=== PATIENT | female | born 1995 | race Caucasian/White ===

== ENCOUNTER 2017-05-21 16:18 | Outpatient (CLI) | payer BC, OTHER ==
--- NOTE | 2017-05-21 17:57 | RADIOLOGY REPORT (SQ) ---
EXAM DESCRIPTION: U/S PROFILE W/O STRESS COMPLETED DATE/TIME: 05/21/2017 5:29 pm REASON FOR STUDY: nonreactive nst COMPARISON: None. TECHNIQUE: Limited batista-scale realtime and static images of the fetus to measure specified parameter s. LIMITATIONS: None. FINDINGS: HEART RATE: 157 to 162 beats per minute. CAROLYN: 14.2 cm. POSTURE AND TONE: 2 points. MOVEMENT: 2 points. BREATHING MOVEMENT: 2 points. QUALITATIVE CAROLYN: 2 points. OTHER: No other significant finding. IMPRESSION: BIOPHYSICAL PROFILE: 05/25. Trimester of : Third - 28 weeks to delivery COMMENT: BREATHING MOVEMENTS: 2 POINTS: PRESENT 0 POINTS: ABSENT MOTION: 2 POINTS: PRESENT 0 POINTS: ABSENT TONE: 2 POINTS: PRESENT 0 POINTS: ABSENT AMNIOTIC FLUID VOLUME: 2 POINTS: LARGEST POCKET GREATER THAN 2 CM DEPTH. 0 POINTS: NO POCKET OF 2 CM. TECHNICAL DOCUMENTATION: JOB ID: [id number] [employer]- All Rights Reserved
--- NOTE | 2017-05-21 18:10 | Non Stress Test Report ---
Non Stress Test Datetime Report Generated by CPN: 05/21/2017 18:10 INDICATION Indication for Study: Ordered by Provider VITAL SIGNS Temperature - NST: 98.9 Pulse - NST: 92 RESP - NST: 16 NBPSYS NST: 132 NBPDIA NST: 74 MONITORING Monitor Explained: Monitor Explained; Test Explained; Patient Verbalized Understanding Time on Monitor: 05/21/2017 16:36 Time off Monitor: 05/21/2017 16:58 NST Duration: 22 NST INTERVENTIONS NST Interventions: None; For Biophysical Profile Physician Notified NST: Dr. Ruiz BABY A: [id number] BABY A Movement : Present Contraction Frequency : 0 FHR Baseline : 160 Accelerations : 15X15 Decelerations : None Variability : Moderate 6-25bpm NST Review: Meets Criteria for Reactive NST NST Review and Verified By : Marsha Bellavashelbie RNC NST Results: Reactive NST COMMENTS NST Comments: BPP 8/8 NST REPORT Report Trigger: Send Report
== END 2017-05-21 18:08 | disposition home or self-care (01) ==
LOC: LC 16:18
PROVIDERS: ATTEND Student in an Organized Health Care Education/Training Program
PROC: 4A1HXCZ Monitoring of Products of Conception, Cardiac Rate, External Approach (ICD-10-PCS; principal; 2017-05-21)
DX: Z36 Encounter for antenatal screening of mother (principal)
CPT/HCPCS: 59025; 76819

== ENCOUNTER 2017-05-28 11:24 | Outpatient (CLI) | payer BC, OTHER ==
--- NOTE | 2017-05-28 13:42 | Non Stress Test Report ---
Non Stress Test Datetime Report Generated by CPN: 05/28/2017 13:42 DEMOGRAPHIC EGA NST: 35.6 INDICATION Indication for Study: Ordered by Provider MONITORING Monitor Explained: Monitor Explained; Test Explained; Patient Verbalized Understanding Time on Monitor: 05/28/2017 11:36 Time off Monitor: 05/28/2017 13:32 NST Duration: 116 NST INTERVENTIONS NST Interventions: PO Hydration; Reposition Patient Physician Notified NST: Dr Hogue BABY A Movement : Present Contraction Frequency : none FHR Baseline : 140 Accelerations : 15X15 Decelerations : None Variability : Moderate 6-25bpm NST Review: Meets Criteria for Reactive NST NST Review and Verified By : Ronaldo Brown RN NST Results: Reactive NST REPORT Report Trigger: Send Report
== END 2017-05-28 13:40 | disposition home health service (06) ==
LOC: LC 11:24
PROVIDERS: ATTEND Obstetrics & Gynecology
PROC: 4A1HXCZ Monitoring of Products of Conception, Cardiac Rate, External Approach (ICD-10-PCS; principal; 2017-05-28)
DX: Z34.93 Encounter for supervision of normal pregnancy, unspecified, third trimester (principal); Z36 Encounter for antenatal screening of mother; Z3A.35 35 weeks gestation of pregnancy
CPT/HCPCS: 59025; 82962

== ENCOUNTER 2017-06-04 11:12 | Outpatient (CLI) | payer BC, OTHER | END 2017-06-04 11:50 | disposition home or self-care (01) | LOC: LC 11:12 | PROVIDERS: ATTEND Student in an Organized Health Care Education/Training Program | PROC: 4A1HXCZ Monitoring of Products of Conception, Cardiac Rate, External Approach (ICD-10-PCS; principal; 2017-06-04) | DX: O24.913 Unspecified diabetes mellitus in pregnancy, third trimester (principal); Z3A.37 37 weeks gestation of pregnancy | CPT/HCPCS: 59025 ==

== ENCOUNTER 2017-06-15 10:34 | Outpatient (CLI) | payer BC, OTHER ==
--- NOTE | 2017-06-15 12:18 | Non Stress Test Report ---
Non Stress Test Datetime Report Generated by CPN: 06/15/2017 12:18 DEMOGRAPHIC EGA NST: 38.3 EGA NST: 36.6 INDICATION Indication for Study: Ordered by Provider Indication for Study: Diabetes Mellitus; Ordered by Provider VITAL SIGNS Temperature - NST: 98.5 Pulse - NST: 85 RESP - NST: 20 NBPSYS NST: 120 NBPDIA NST: 80 MONITORING Monitor Explained: Monitor Explained; Test Explained; Patient Verbalized Understanding Monitor Explained: Monitor Explained; Test Explained; Patient Verbalized Understanding Time on Monitor: 06/15/2017 11:40 Time on Monitor: 06/04/2017 11:24 Time off Monitor: 06/15/2017 12:00 Time off Monitor: 06/04/2017 11:46 NST Duration: 20 NST Duration: 22 NST INTERVENTIONS NST Interventions: PO Hydration; Reposition Patient NST Interventions: PO Hydration Physician Notified NST: C Franco CNM Physician Notified NST: H Stephen CNM BABY A: [id number] BABY A Movement : Present Movement : Present Contraction Frequency : 7-10 Contraction Frequency : 0 FHR Baseline : 145 FHR Baseline : 145 Accelerations : 15X15 Accelerations : 15X15 Decelerations : None Decelerations : None Variability : Moderate 6-25bpm Variability : Moderate 6-25bpm NST Review: Meets Criteria for Reactive NST NST Review: Meets Criteria for Reactive NST NST Review and Verified By : Catalina Krishnamurthy NST Review and Verified By : Ahmet Camacho [facility] NST Results: Reactive NST Results: Reactive NST REPORT Report Trigger: Send Report
== END 2017-06-15 12:12 | disposition home or self-care (01) ==
LOC: LC 10:34
PROVIDERS: ATTEND Obstetrics & Gynecology
PROC: 4A1HXCZ Monitoring of Products of Conception, Cardiac Rate, External Approach (ICD-10-PCS; principal; 2017-06-15)
DX: O24.419 Gestational diabetes mellitus in pregnancy, unspecified control (principal); Z3A.38 38 weeks gestation of pregnancy
CPT/HCPCS: 59025

== ENCOUNTER 2017-06-25 11:44 | Outpatient (CLI) | payer BC, OTHER ==
--- NOTE | 2017-06-25 13:50 | Non Stress Test Report ---
Non Stress Test Datetime Report Generated by CPN: 06/25/2017 13:50 DEMOGRAPHIC EGA NST: 39.6 INDICATION Indication for Study: Ordered by Provider MONITORING Monitor Explained: Monitor Explained; Test Explained; Patient Verbalized Understanding Time on Monitor: 06/25/2017 12:50 Time off Monitor: 06/25/2017 13:23 NST Duration: 33 NST INTERVENTIONS NST Interventions: PO Hydration Physician Notified NST: Dr. Merino BABY A: [id number] BABY A Movement : Present Contraction Frequency : x0 FHR Baseline : 140 Accelerations : 15X15 Decelerations : None Variability : Moderate 6-25bpm NST Review: Meets Criteria for Reactive NST NST Review and Verified By : Ahmet Camacho RNC NST Results: Reactive NST REPORT Report Trigger: Send Report
== END 2017-06-25 13:30 | disposition home or self-care (01) ==
LOC: LC 11:44
PROVIDERS: ATTEND Obstetrics & Gynecology
PROC: 4A1HXCZ Monitoring of Products of Conception, Cardiac Rate, External Approach (ICD-10-PCS; principal; 2017-06-25)
DX: O24.419 Gestational diabetes mellitus in pregnancy, unspecified control (principal); Z3A.39 39 weeks gestation of pregnancy
CPT/HCPCS: 59025

== ENCOUNTER 2017-06-25 21:10 | Inpatient (IN) | payer BC, OTHER ==
[~2017-06-25 21:10] MED LIST: RINGERS SOLUTION,LACTATED 1,000 ML IV PRN
[2017-06-25 22:46] LABS: APPEARANCE,URINE SLIGHTLY-CLOUDY; BILIRUBIN,URINE NEGATIVE (NEGATIVE); GLUCOSE, URINE NEGATIVE (NEGATIVE); KETONES,URINE NEGATIVE (NEGATIVE); LEUKOCYTE ESTERASE,URINE SMALL (NEGATIVE); NITRITE,URINE NEGATIVE (NEGATIVE); PROTEIN,URINE 100 mg/dL (NEGATIVE); URINE SPECIFIC GRAVITY 1.028; UROBILINOGEN,URINE NEGATIVE mg/dL (<2.0)
[2017-06-25 22:53] LABS: ABSOLUTE BASOPHILS # (AUTO) 0.1 10^3/uL (0.0-0.2); ABSOLUTE EOSINOPHILS # (AUTO) 0.1 10^3/uL (0.0-0.6); ABSOLUTE LYMPHOCYTES (AUTO) 1.9 10^3/uL (0.5-4.7); ABSOLUTE MONOCYTES (AUTO) 1.1 10^3/uL (0.1-1.4); ABSOLUTE NEUT (AUTO) 10.2 10^3/uL (1.7-8.2); BASOPHILS % (AUTO) 0.6 % (0-2); EOSINOPHILS % (AUTO) 0.5 % (0-6); HEMATOCRIT 36.3 % (36.0-47.0); HEMOGLOBIN 12.5 g/dL (12.0-15.5); HGB HCT DIFFERENCE 1.2; LYMPHOCYTES % (AUTO) 14.6 % (13-45); MEAN CORPUSCULAR HEMOGLOBIN 30.3 pg (27.0-33.4); MEAN CORPUSCULAR HGB CONC 34.5 g/dL (32.0-36.0); MEAN CORPUSCULAR VOLUME 88 fl (80-97); RED BLOOD COUNT 4.14 10^6/uL (3.72-5.28); RED CELL DISTRIBUTION WIDTH 14.3 % (11.5-14.0); SEGMENTED NEUTROPHILS % (AUTO) 76.3 % (42-78); WHITE BLOOD COUNT 13.3 10^3/uL (4.0-10.5)
[2017-06-25 23:03] LABS: URINE BARBITURATES SCREEN NEGATIVE; URINE METHADONE SCREEN NEGATIVE; URINE OPIATES LOW NEGATIVE; URINE PHENCYCLIDINE SCREEN NEGATIVE
[2017-06-25] MEDS ORDERED: FENTANYL/BUPIVACAINE/NS/PF 0 MCG/0 ML RTUINJ EPI ONE (23:09)
[2017-06-25] MEDS ORDERED: EPHEDRINE SULFATE INJ 50 MG/1 ML AMPULE ONE (23:09)
[2017-06-25] MEDS ORDERED: FENTANYL CITRATE INJ/PF 100 MCG/2 ML AMPUL ONE (23:09)
[2017-06-25] MEDS ORDERED: BUPIVACAINE HCL 0.25 % INJ/PF (2.5 MG/1 ML) 30 ML VIAL ONE (23:09)
[2017-06-25] MEDS ORDERED: PHENYLEPHRINE HCL INJ/PF 10 MG/1 ML SDV ONE (23:09)
[2017-06-25] MEDS ORDERED: OXYTOCIN/NORMAL SALINE 20 UNIT/1,000 ML RTUINJ ONE (23:10)
[2017-06-25] MEDS ORDERED: MISOPROSTOL 0.2 MG TABLET ONE (23:10)
[2017-06-25] MEDS ORDERED: LIDOCAINE 1% INJ-PF (10 MG/ML) 30 ML SDV ONE (23:10)
[2017-06-26] MEDS ORDERED: ACETAMINOPHEN WITH CODEINE #3 TABLET ONE (00:01)
[2017-06-26] MEDS ORDERED: IBUPROFEN 800 MG TABLET ONE (00:01)
[2017-06-26] MEDS ORDERED: MEASLES,MUMPS&RUBELLA VACC/PF 0.5 ML VIAL SUBCUT PRN (00:03)
[2017-06-26] MEDS ORDERED: DIPH/PERTUSS(ACELL)/TETANUS VAC/PF 0.5 ML SYR (>=10YO) IM PRN (00:03)
[2017-06-26] MEDS ORDERED: PROMETHAZINE HCL 25 MG SUPP.RECT PR PRN (00:03)
[2017-06-26] MEDS ORDERED: PROMETHAZINE HCL INJ 25 MG/1 ML VIAL IV PRN (00:03)
[2017-06-26] MEDS ORDERED: PROMETHAZINE HCL 25 MG TABLET PO PRN (00:03)
[2017-06-26] MEDS ORDERED: DIPHENHYDRAMINE HCL 25 MG CAPSULE PO PRN (00:03)
[2017-06-26] MEDS ORDERED: PSEUDOEPHEDRINE HCL 30 MG TABLET PO PRN (00:03)
[2017-06-26] MEDS ORDERED: OXYTOCIN/NORMAL SALINE 20 UNIT/1,000 ML RTUINJ IV PRN (00:03)
[2017-06-26] MEDS ORDERED: GLYCERIN/WITCH HAZEL LEAF 1 EACH MED..PAD TP PRN (00:03)
[2017-06-26] MEDS ORDERED: NA PHOS,M-B/NA PHOS,DI-BA (ADULT) 133 ML ENEMA PR PRN (00:03)
[2017-06-26] MEDS ORDERED: DIBUCAINE 1% OINTMENT 28 GM TP PRN (00:03)
[2017-06-26] MEDS ORDERED: ACETAMINOPHEN 650 MG SUPP.RECT PR PRN (00:03)
[2017-06-26] MEDS ORDERED: BENZOCAINE/MENTHOL AEROSOL SPRAY 56 ML TOP PRN (00:03)
[2017-06-26] MEDS ORDERED: MAGNESIUM HYDROXIDE SUSP 30 ML UDCUP PO PRN (00:03)
[2017-06-26] MEDS ORDERED: ZOLPIDEM TARTRATE 5 MG TABLET PO PRN (00:03)
[2017-06-26] MEDS ORDERED: SERTRALINE HCL 50 MG TABLET ONE (01:57)
--- NOTE | 2017-06-26 02:20 | Delivery Summary ---
Del Sum A-C Datetime Report Generated by CPN: 06/26/2017 02:20 DELIVERY PERSONNEL DELIVERY PERSONNEL: [id number] Delivery Doctor:: Vee Merino MD Labor and Delivery Nurse:: Bridgette Reyes RNsheet fed printer Nurse:: Vicki Tom, RN Community Affairs Manager/SHIELD CLEANER: Ashlyn Semar, COLLATERAL CLERK MATERNAL INFORMATION Delivery Anesthesia: None Medications After Delivery: Pitocin Drip 20 Units/1000ml NSS Maternal Complications: Precipitous Labor (<3hrs) LABOR SUMMARY EDC: 06/26/2017 00:00 No. Babies in Womb: 1 Attempted: No Labor Anesthesia: None LABOR INFORMATION Reason for Induction: Not Applicable Onset of Labor: 06/25/2017 21:31 Complete Dilatation: 06/25/2017 23:30 Oxytocin: N/A Group B Beta Strep: negative Antibiotics # of Doses: 0 Steroids Given: None Reason Steroids Not Administered: Not Applicable MEMBRANES Membranes Rupture Method: Artificial Rupture of Membranes: 06/25/2017 23:30 Length of Rupture (hr): 0.20 Amniotic Fluid Color: Light Meconium Amniotic Fluid Amount: Small STAGES OF LABOR Stage 1 hr: 1 Stage 1 min: 59 Stage 2 hr: 0 Stage 2 min: 12 Stage 3 hr: 0 Stage 3 min: 5 Total Time in Labor hr: 2 Total Time in Labor min: 16 VAGINAL DELIVERY Episiotomy: None Laceration Extension: N/A Laceration Type: Vaginal Laceration Repair: Yes Laceration Repair Note: repair with interupted 3-0 chromic suture. the vagina is somewhat macerated. the mucosa was brought together as much as possible. Sponge Count Correct: Vaginal Sweep Performed Sharps Count Correct: Yes CSECTION DELIVERY Primary Indication: N/A Secondary Indication: N/A CSection Incidence: N/A CSection Incision: N/A BABY A INFORMATION Delivery Date/Time: 06/25/2017 23:42 Method of Delivery: Vaginal Born in Route : No : N/A Forceps: N/A Vacuum Extraction: N/A Shoulder Dystocia : No PRESENTATION/POSITION BABY A Presentation: Cephalic Cephalic Presentation: Vertex Vertex Position: Left Occipital Anterior Breech Presentation: N/A PLACENTA INFORMATION BABY A Placenta Delivery Time : 06/25/2017 23:47 Placenta Method of Delivery: Spontaneous Placenta Status: Delivered SCORES BABY A Heart Rate 1 min: >100 bpm Resp Effort 1 min: Slow, Irregular Reflex Irritability 1 min: Cough or Sneeze or Pulls Away Muscle Tone 1 min: Some Flexion of Extremities Color 1 min: Blue/Pale Resuscitation Effort 1 min: Tactile Stimulation; Oxygen SCORE 1 MIN: 6 Heart Rate 5 min: >100 bpm Resp Effort 5 min: Slow, Irregular Reflex Irritability 5 min: Cough or Sneeze or Pulls Away Muscle Tone 5 min: Some Flexion of Extremities Color 5 min: Completely [place] Resuscitation Effort 5 min: Tactile Stimulation SCORE 5 MIN: 8 INFANT INFORMATION BABY A Gestational Age at Delivery: 39.6 Gestational Status: Full Term- 39- 40.6 Weeks Outcome : Liveborn Condition : Stable Infant Sex: Female IDENTIFICATION BABY A Verification Date/Time: 06/26/2017 00:49 ID Band Number: [id number] Mother's Name Verified: Yes RN Verifying : rn ximena Additional Verifying Personnel: rn ring WEIGHT/LENGTH BABY A Infant Birthweight (gm): 2870 Weight (lb): 6 Weight (oz): 5 Length (in): 19.00 Length (cm): 48.26 CORD INFORMATION BABY A No. Cord Vessels: 3 Nuchal Cord : Around Neck x1, Loose Cord Blood Taken: Yes-For Eval (Mom's Blood Type - or O+) Suction: Mouth; Nose ASSESSMENT BABY A Infant Complications: None Physical Findings at Delivery: Within Normal Limits Infant Respirations: Appears Normal Skin to Skin: Yes Cook Short Order/ALS Called : No Transferred To: Remains with Mother SIGNATURES Signature: with User ID: [email or web address]
[2017-06-26] MEDS ORDERED: LIDOCAINE 1% INJ-PF (10 MG/ML) 30 ML SDV ONE (02:58)
--- NOTE | 2017-06-26 03:22 | Admission Physical ---
Datetime Report Generated by CPN: 06/26/2017 03:22 CURRENT ADMISSION Chief Complaint: Uterine Contractions Indication for Induction: Not Applicable Admit Plan: Admit to Unit; Initiate Labor Protocol ALLERGIES Medication Allergies: No Latex: No Latex Allergies Food Allergies: mild sensitivity to raw shellfish (hives) Environmental Allergies: pt states not allergic to topical iodine OBSTETRICAL HISTORY EDC: 06/26/2017 00:00 : 1 Para: 0 Term: 0 : 0 SAB: 0 IAB: 0 Ectopic: 0 Livin Cesareans: 0 VBACs: 0 Multiple Births: 0 Gestational Diabetes: Yes Rh Sensitization: No Incompetent Cervix: No OLIVIER: No Infertility: No ART Treatment: No Uterine Anomaly: No IUGR: No Hx Previous C/S: No Macrosomia: No Hx Loss/Stillborn: No PIH: No Hx : No Placenta Previa/Abruption: No Depression/PP Depression: Yes PTL/PROM: No Post Hemorrhage: No Current Procedures: Ultrasound; NST; BPP Obstetrical History Comments: Gestational diabetes in current SEE RECORDS Alcohol: No Marijuana : No Cocaine: No Other Illicit Drugs: No Cigarettes: Never Smoker. [id number] MEDICAL HISTORY Diabetes: Yes Diabetes Type: Gestational Diabetes Blood Transfusion: No Pulmonary Disease (Asthma, TB): No Breast Disease: No Hypertension: No Apparel Cutter Surgery: No Heart Disease: No Hosp/Surgery: No Autoimmune Disorder: No Anesthetic Complications: No Kidney Disease: No Abnormal Pap Smear: No Neuro/Epilepsy: No Psychiatric Disorders: No Other Medical Diseases: No Hepatitis/Liver Disease: No Significant Family History: No Varicosities/Phlebitis: No Trauma/Violence : No Thyroid Dysfunction: No Medical History Comments: Hx of depression - taking 150 mg zoloft, history of adhd was on adderal until 8 weeks of , obesity (Annotations: Data stored by [facility] on behalf of user) INFECTIOUS HISTORY Gonorrhea: No Genital Herpes: No Chlamydia: No Tuberculosis: No Syphilis: No Hepatitis: No HIV/AIDS Exposure: No Rash or Viral Illness: No HPV: No PHYSICAL EXAM General: Normal HEENT: Normal Neurologic: Normal Thyroid: Normal Heart: Normal Lungs: Normal Breast: Normal Back: Normal Abdomen: Normal Genitourinary Exam: Normal Extremities: Normal DTRs: Normal Pelvic Type: Adequate Vital Signs: Reviewed VAGINAL EXAM Dilatation: 5 Effacement: 90 Station: -1 MEMBRANES Pooling: Negative Membranes: Intact FETUS A EGA: 39.6 FHR- Baseline: 150 Variability: Moderate 6-25bpm Accelerations: 10X10 Decelerations: None FHR Category: Category I Presentation: Vertex Admit Comment: efw 7-8lbs PLANS FOR LABOR AND DELIVERY Labor and Delivery: None Pain Management: Epidural Feeding Preference: Breast Benefit of Breast Feed Discussed: Yes (Annotations: Data stored by [facility] on behalf of user) Circumcision: N/A INFORMED CONSENT Signature: with User ID: Latanya Signature: with User ID: [email or web address] : with User ID: Latanya
[2017-06-26] MEDS: IBUPROFEN 800 MG TABLET PO SCH ×3 (05:47→22:00)
[2017-06-26] MEDS: ACETAMINOPHEN WITH CODEINE #3 TABLET PO PRN ×3 (07:40→22:48)
[2017-06-26] MEDS: FERROUS SULFATE 325 MG TABLET PO SCH ×2 (09:10→17:09)
[2017-06-26] MEDS: SENNOSIDES/DOCUSATE 8.6-50 MG 1 EACH TABLET PO SCH (09:11)
[2017-06-26] MEDS: FAMOTIDINE 20 MG TABLET PO SCH ×2 (09:11→22:00)
[2017-06-26] MEDS: PRENATAL VITAMIN W-O CA NO5/FE FUMARATE/FA CAPSULE PO SCH (09:11)
[2017-06-26] MEDS: DOCUSATE SODIUM 100 MG CAPSULE PO SCH ×2 (09:12→17:09)
--- NOTE | 2017-06-26 12:13 | PDOC PROGRESS REPORT ---
Subjective-OB Subjective: Post Delivery Day: 22 year old. Denies any needs at this time Physical Exam (OB) Vital Signs: Temp Pulse Resp BP Pulse Ox 98.1 F 112 H 17 128/82 H 99 06/26/17 08:00 06/26/17 08:00 06/26/17 08:00 06/26/17 08:00 06/26/17 08:00 Intake & Output 06/25/17 06/26/17 06/27/17 06:59 06:59 06:59 Intake Total 700 Balance 700 Weight 111.35 kg - Lochia Lochia Amount: Scant < 10 ml Lochia Color: Rubra/Red - Abdomen Description: Tender, Soft, Round Hernia Present: No Bowel Sounds: Normoactive Flatus Presence: Absent Stool: No Fundal Description: Firm, Midline Fundal Height: u/u - u/2 Objective-Diagnostic Laboratory: 06/25/17 22:25 06/25/17 22:25 06/25/17 06/25/17 06/25/17 21:20 22:25 22:25 WBC 13.3 H RBC 4.14 Hgb 12.5 Hct 36.3 MCV 88 MCH 30.3 MCHC 34.5 RDW 14.3 H Plt Count 227 Seg Neutrophils % 76.3 Lymphocytes % 14.6 Monocytes % 8.0 Eosinophils % 0.5 Basophils % 0.6 Absolute Neutrophils 10.2 H Absolute Lymphocytes 1.9 Absolute Monocytes 1.1 Absolute Eosinophils 0.1 Absolute Basophils 0.1 Glucose Urine Color YELLOW Urine Appearance SLIGHTLY-CLOUDY Urine pH 5.0 Ur Specific [place] 1.028 Urine Protein 100 H Urine Glucose (UA) NEGATIVE Urine Ketones NEGATIVE Urine Blood MODERATE H Urine Nitrite NEGATIVE Ur Leukocyte Esterase SMALL H Blood Type O POSITIVE Antibody Screen NEGATIVE 06/25/17 22:25 WBC RBC Hgb Hct MCV MCH MCHC RDW Plt Count Seg Neutrophils % Lymphocytes % Monocytes % Eosinophils % Basophils % Absolute Neutrophils Absolute Lymphocytes Absolute Monocytes Absolute Eosinophils Absolute Basophils Glucose 72 L Urine Color Urine Appearance Urine pH Ur Specific [place] Urine Protein Urine Glucose (UA) Urine Ketones Urine Blood Urine Nitrite Ur Leukocyte Esterase Blood Type Antibody Screen
[2017-06-26] MEDS ORDERED: SERTRALINE HCL 50 MG TABLET PO SCH (22:00)
[2017-06-27] MEDS: IBUPROFEN 800 MG TABLET PO SCH (05:36)
[2017-06-27] MEDS: ACETAMINOPHEN WITH CODEINE #3 TABLET PO PRN (07:10)
[2017-06-27 07:50] LABS: HEMATOCRIT 32.9 % (36.0-47.0); HEMOGLOBIN 11.4 g/dL (12.0-15.5); HGB HCT DIFFERENCE 1.3; MEAN CORPUSCULAR HEMOGLOBIN 30.7 pg (27.0-33.4); MEAN CORPUSCULAR HGB CONC 34.7 g/dL (32.0-36.0); MEAN CORPUSCULAR VOLUME 89 fl (80-97); RED BLOOD COUNT 3.71 10^6/uL (3.72-5.28); RED CELL DISTRIBUTION WIDTH 14.5 % (11.5-14.0); WHITE BLOOD COUNT 10.6 10^3/uL (4.0-10.5)
[2017-06-27 08:13] VITALS: BP 128/97
[2017-06-27] MEDS: FAMOTIDINE 20 MG TABLET PO SCH (09:11)
[2017-06-27] MEDS: SENNOSIDES/DOCUSATE 8.6-50 MG 1 EACH TABLET PO SCH (09:11)
[2017-06-27] MEDS: FERROUS SULFATE 325 MG TABLET PO SCH (09:11)
[2017-06-27] MEDS: DOCUSATE SODIUM 100 MG CAPSULE PO SCH (09:11)
[2017-06-27] MEDS: PRENATAL VITAMIN W-O CA NO5/FE FUMARATE/FA CAPSULE PO SCH (09:11)
--- NOTE | 2017-06-27 09:47 | PDOC DISCHARGE SUMMARY ---
General - Admit/Disc Date/PCP Admission Date/Primary Care Provider: 06/25/17 21:35 RICARDO CALDWELL MD Discharge Date: 06/27/17 - Discharge Diagnosis (1) Delivery normal Is this a current diagnosis for this admission?: Yes (2) Depression with anxiety Is this a current diagnosis for this admission?: No (3) GDM (gestational diabetes mellitus) Is this a current diagnosis for this admission?: Yes (4) Is this a current diagnosis for this admission?: Yes - Additional Information Discharge Diet: Regular Discharge Activity: Activity As Tolerated, No Lifting Over 10 Pounds, Pelvic Rest, No tub bath Home Medications: Vit #76/Iron,Carb/FA [Prenatabs Rx Tablet] 1 tab PO DAILY 05/21/17 Sertraline HCl [Zoloft] 150 mg PO [id number] 05/21/17 History of Present Illness History of Present Illness: IKRILL SIM is a 22 year old female Hospital Course Hospital Course: s/p vaginal delivery with normal course. doing well. Physical Exam - Physical Exam Vital Signs: Temp Pulse Resp BP Pulse Ox 98.0 F 111 H 20 128/82 H 99 06/27/17 07:54 06/27/17 07:54 06/27/17 07:54 06/27/17 07:54 06/27/17 07:54 Intake & Output 06/26/17 06/27/17 06/28/17 06:59 06:59 06:59 Intake Total 1200 240 Output Total 1 Balance 1200 239 Weight 111.35 kg General appearance: PRESENT: no acute distress - Obstetrical Exam Fundal Height: u/u - u/2 Tender: No Result Laboratory Results: 06/27/17 07:29 06/25/17 22:25 06/27/17 07:29 WBC 10.6 H RBC 3.71 L Hgb 11.4 L Hct 32.9 L MCV 89 MCH 30.7 MCHC 34.7 RDW 14.5 H Plt Count 192 Plan Discharge Plan: discharge home with appt [place] [address] [facility] Time Spent: Less than 30 Minutes
== END 2017-06-27 12:26 | disposition home or self-care (01) | DRG 775 ==
LOC: LC 21:10 → LR 21:35 → 2S 06-26 03:21
PROVIDERS: ADMIT Obstetrics & Gynecology; ATTEND Obstetrics & Gynecology
PROC: 10E0XZZ Delivery of Products of Conception, External Approach (ICD-10-PCS; principal; 2017-06-25)
PROC: 10907ZC Drainage of Amniotic Fluid, Therapeutic from Products of Conception, Via Natural or Artificial Opening (ICD-10-PCS; 2017-06-25)
PROC: 4A1HXCZ Monitoring of Products of Conception, Cardiac Rate, External Approach (ICD-10-PCS; 2017-06-25)
DX: O24.429 Gestational diabetes mellitus in childbirth, unspecified control (principal); Z68.41 Body mass index [BMI] 40.0-44.9, adult; O99.344 Other mental disorders complicating childbirth; F32.9 Major depressive disorder, single episode, unspecified; O62.3 Precipitate labor; O77.0 Labor and delivery complicated by meconium in amniotic fluid; O99.214 Obesity complicating childbirth; Z37.0 Single live birth
CPT/HCPCS: 36415; 59025; 80307; 81005; 82947; 85025; 85027; 86592; 86850; 86900; 86901; J2370; J2590; J3010; J3490